=== PATIENT | female | born 1945 | race African-American/Black ===

== ENCOUNTER 2020-12-23 10:09 | Outpatient (CLI) | payer MEDICARE, OTHER, MEDICAID | END 2020-12-23 10:10 | disposition home or self-care (01) | LOC: CSHWCC 10:09 | PROVIDERS: ATTEND Nurse Practitioner Family | DX: L89.213 Pressure ulcer of right hip, stage 3 (principal); L89.892 Pressure ulcer of other site, stage 2; E11.622 Type 2 diabetes mellitus with other skin ulcer; L98.499 Non-pressure chronic ulcer of skin of other sites with unspecified severity; K21.9 Gastro-esophageal reflux disease without esophagitis; M24.552 Contracture, left hip; R47.01 Aphasia; Z74.01 Bed confinement status | CPT/HCPCS: 11042; 11045; 97139; G0463; 99203 ==

== ENCOUNTER 2021-01-19 12:37 | Outpatient (CLI) | payer MEDICARE, OTHER, MEDICAID | END 2021-01-19 12:38 | disposition home or self-care (01) | LOC: CSHWCC 12:37 | PROVIDERS: ATTEND Nurse Practitioner Family | DX: L89.213 Pressure ulcer of right hip, stage 3 (principal); L89.892 Pressure ulcer of other site, stage 2; L89.890 Pressure ulcer of other site, unstageable; E11.622 Type 2 diabetes mellitus with other skin ulcer; L98.499 Non-pressure chronic ulcer of skin of other sites with unspecified severity; K21.9 Gastro-esophageal reflux disease without esophagitis; M24.552 Contracture, left hip; R47.01 Aphasia; Z74.01 Bed confinement status | CPT/HCPCS: 99214; G0463 ==

== ENCOUNTER 2021-05-27 08:46 | Outpatient (CLI) | payer MEDICARE, OTHER, MEDICAID | END 2021-05-27 08:47 | disposition home or self-care (01) | LOC: CSHWCC 08:46 | PROVIDERS: ATTEND Nurse Practitioner Family | DX: L89.213 Pressure ulcer of right hip, stage 3 (principal); E11.622 Type 2 diabetes mellitus with other skin ulcer; L98.499 Non-pressure chronic ulcer of skin of other sites with unspecified severity; K21.9 Gastro-esophageal reflux disease without esophagitis; M24.552 Contracture, left hip; R47.01 Aphasia; Z74.01 Bed confinement status | CPT/HCPCS: 99213; G0463 ==

== ENCOUNTER 2021-07-22 09:24 | Outpatient (CLI) | payer MEDICARE, OTHER | END 2021-07-22 09:25 | disposition home or self-care (01) | LOC: CSHWCC 09:24 | PROVIDERS: ATTEND Nurse Practitioner Family | DX: L89.213 Pressure ulcer of right hip, stage 3 (principal); E11.622 Type 2 diabetes mellitus with other skin ulcer; L98.499 Non-pressure chronic ulcer of skin of other sites with unspecified severity; K21.9 Gastro-esophageal reflux disease without esophagitis; M24.552 Contracture, left hip; R47.01 Aphasia; Z74.01 Bed confinement status | CPT/HCPCS: 97139; G0463; 99213 ==

== ENCOUNTER 2021-08-17 10:22 | Outpatient (CLI) | payer MEDICARE, OTHER | END 2021-08-17 10:23 | disposition home or self-care (01) | LOC: CSHWCC 10:22 | PROVIDERS: ATTEND Nurse Practitioner Family | DX: L89.213 Pressure ulcer of right hip, stage 3 (principal); E11.622 Type 2 diabetes mellitus with other skin ulcer; L98.499 Non-pressure chronic ulcer of skin of other sites with unspecified severity; M24.552 Contracture, left hip; K21.9 Gastro-esophageal reflux disease without esophagitis; R47.01 Aphasia; Z74.01 Bed confinement status | CPT/HCPCS: 99213; G0463 ==

== ENCOUNTER 2021-09-14 10:30 | Outpatient (CLI) | payer MEDICARE, OTHER, MEDICAID | END 2021-09-14 10:31 | disposition home or self-care (01) | LOC: CSHWCC 10:30 | PROVIDERS: ATTEND Nurse Practitioner Family | DX: L89.213 Pressure ulcer of right hip, stage 3 (principal); E11.622 Type 2 diabetes mellitus with other skin ulcer; K21.9 Gastro-esophageal reflux disease without esophagitis; M24.552 Contracture, left hip; R47.01 Aphasia; Z74.01 Bed confinement status ==

== ENCOUNTER 2021-11-08 10:50 | Outpatient (CLI) | payer MEDICARE, OTHER, MEDICAID | END 2021-11-08 10:51 | disposition home or self-care (01) | LOC: CSHWCC 10:50 | PROVIDERS: ATTEND Nurse Practitioner Family | DX: L89.219 Pressure ulcer of right hip, unspecified stage (principal) ==